=== PATIENT | female | born 1960 | race Caucasian/White ===

== ENCOUNTER 2022-09-10 08:42 | Emergency (ER) | payer OTHER, SELFPAY ==
--- NOTE | ~2022-09-10 | XR_ITS ---
EXAMINATION: XR chest 2V 09/10/2022 09:32 INDICATION: Chest pressure with tightness PROCEDURE: 2 view chest COMPARISON: 04/14/2020 sixth FINDINGS: The lungs are clear. The cardiomediastinal silhouette is within normal limits. There are no pleural effusions. There is no pneumothorax suspected. There is chronic left basilar atelectasis /scarring. There are surgical changes in the epigastric region. IMPRESSION: 1: NO ACUTE CARDIOPULMONARY DISEASE. Reviewed, dictated and finalized at location A. [facility] [employer]
--- NOTE | 2022-09-10 08:54 | ED.URI ---
HPI - URI/Sore Throat General Stated Complaint: NECK/CHEST/LUNG PAIN/PAINFUL TO TAKE DEEP BREATH Time Seen by Provider: 09/10/22 09:00 Source: patient and RN notes reviewed Mode of arrival: ambulatory Limitations: no limitations History of Present Illness HPI Narrative: 61-year-old female presents concern for left chest pain, anterior neck pain. She reports the pain in starting left chest, goes under the left breast. Reports it is more painful when she takes a deep breath. Reports moving her arm does exacerbate the pain. She reports the chest pain is keeping her awake last night. She denies injury or trauma. She denies worsening pain with exertion. Denies nausea, vomiting, diaphoresis, shortness of breath. She reports bilateral upper tooth pain for which she has been seeing a dentist. She has an appointment with ENT to evaluate symptoms of her oral pain. She has an appointment with her primary care doctor on Monday. MD elicited complaint: other (Chest pain) Related Data Home Medications Medication Instructions Recorded Confirmed estradiol 0.5 mg tablet 0.5 mg PO DIRECTED 09/10/22 09/10/22 gabapentin 300 mg capsule 300 mg PO DIRECTED 09/10/22 09/10/22 levothyroxine 112 mcg tablet 112 mcg PO DAILY 09/10/22 09/10/22 (Synthroid) rimegepant 75 mg disintegrating 75 mg PO DIRECTED 09/10/22 09/10/22 tablet (Nurtec ODT) topiramate 25 mg tablet 25 mg PO DIRECTED 09/10/22 09/10/22 zolpidem 12.5 mg tablet,extended 12.5 mg PO DAILY 09/10/22 09/10/22 release,multiphase Allergies Allergy/AdvReac Type Severity Reaction Status Date / Time latex Allergy Mild Other Verified 09/10/22 09:02 Penicillins Allergy Mild Other Verified 09/10/22 09:02 Sulfa (Sulfonamide Allergy Mild Other Verified 09/10/22 09:02 Antibiotics) carisoprodol Allergy Unknown Other Verified 09/10/22 09:02 codeine Allergy Unknown Other Verified 09/10/22 09:02 diazepam Allergy Unknown Other Verified 09/10/22 09:02 erythromycin base Allergy Unknown Other Verified 09/10/22 09:02 morphine Allergy Unknown Other Verified 09/10/22 09:02 AMOXICILLIN TRIHYDRATE Allergy Unknown Other Uncoded 09/10/22 09:02 POTASSIUM CLAVULANATE Allergy Unknown Other Uncoded 09/10/22 09:02 TDAP Allergy Unknown Other Uncoded 09/10/22 09:02 RU-TUSS AdvReac Unknown Other Uncoded 09/10/22 09:02 Review of Systems Review of Systems: CONSTITUTIONAL: Reports malaise. Denies chills, sweats, or fever. EYES: Denies visual changes, redness, or discharge. ENT: Denies rhinorrhea, congestion, sinus pain, otalgia or sore throat. Reports anterior exterior throat tenderness CARDIOVASCULAR: Denies chest pain, palpitations, or edema. RESPIRATORY: Denies cough or dyspnea. Reports chest pain with coughing and deep breathing GASTROINTESTINAL: Denies abdominal pain, nausea, vomiting, diarrhea, bloody, or mucous stools. SKIN: Denies rash or itching. MUSCULOSKELETAL: Reports left chest wall pain NEUROLOGIC: Denies numbness, weakness, or headache. All systems reviewed & are unremarkable except as noted in HPI and below PMFSH Social History Social History Smoking status: Never smoker Alcohol intake: never Comments At time of signature, agree with nursing past medical, surgical, social and family history. There is no relevant family history pertinent to the presenting complaint Exam Narrative: GENERAL: Well-appearing, well-nourished, and in no acute distress. HEAD: Normocephalic EYES: PERRLA, conjunctivae clear ENT: Nares clear, turbinates edematous and erythematous, clear discharge. Mucous membranes moist. TM pearly shpeard with dull light reflex bilaterally; no tragal tenderness. Oropharynx not erythematous without lesions. Tonsils not enlarged and without exudate, no drooling, no hoarseness, no trismus, uvula midline. NECK: Supple. No lymphadenopathy CHEST: Clear to auscultation, breath sounds equal. No wheezing, rhonchi, rales, or stridor. No respiratory distress, speaks in full sentenc
[2022-09-10 08:58] VITALS: BP 118/71; PULSE 93; RESP 16; TEMP 37.3; O2SAT 100
--- NOTE | 2022-09-10 09:10 | ECG_ITS ---
Measurements Intervals [place] Rate: 72 P: 54 NV: 141 QRS: 4 QRSD: 81 T: 30 QT: 390 QTc: 428 Interpretive Statements SINUS RHYTHM RSR' IN V1 OR V2, PROBABLY NORMAL VARIANT NONSPECIFIC T-WAVE ABNORMALITY- ANT/INF LEADS BORDERLINE ECG NO PREVIOUS ECG AVAILABLE FOR COMPARISON Electronically Signed On 09-10-2022 10:04:18 ORTHOPHOTOGRAPHY TECHNICIAN by Lm Garcia D.O.
== END 2022-09-10 10:27 | disposition home or self-care (01) ==
PROVIDERS: Emergency Provider Nurse Practitioner; PCP Internal Medicine
DX: R07.89 Other chest pain (principal)
CPT/HCPCS: 71046; 93005; 99203; G0463